=== PATIENT | male | born 2000 | race Caucasian/White ===

== ENCOUNTER → 2023-09-04 19:42 | Outpatient (REF) | payer OTHER, SELFPAY | LOC: MRI 19:42 | PROVIDERS: ATTENDING PHYSICIAN Surgery; FAMILY PHYSICIAN Physician Assistant Medical | DX: Q27.30 Arteriovenous malformation, site unspecified (principal); M79.89 Other specified soft tissue disorders | CPT/HCPCS: 73725; A9585 ==